=== PATIENT | female | born 1930 ===

== ENCOUNTER → 2017-03-13 | Outpatient (CLI) | payer OTHER | END | disposition home or self-care (01) | LOC: LAB 09:35 | DX: C18.0 Malignant neoplasm of cecum (principal); C57.4 Malignant neoplasm of uterine adnexa, unspecified; C25.0 Malignant neoplasm of head of pancreas ==

== ENCOUNTER 2017-03-21 12:09 | Outpatient (CLI) | payer OTHER | END 2017-03-21 12:17 | disposition home or self-care (01) | LOC: LAB 12:09 | DX: C18.8 Malignant neoplasm of overlapping sites of colon (principal) ==